=== PATIENT | female | born 1980 | race Caucasian/White ===

== ENCOUNTER 2019-03-16 12:40 | Inpatient (IN) | payer OTHER ==
[~2019-03-16] VITALS: Ht 154.9 cm; Wt 72.1 kg
[2019-03-16] MEDS ORDERED: methylPREDNISolone SOD SUCC 125 MG/2 ML VL ONE (12:50)
[2019-03-16] MEDS ORDERED: IPRATROPIUM BROM 0.5 MG/2.5ML INH SOL ONE (12:52)
[2019-03-16] MEDS ORDERED: ALBUTEROL SULF 2.5 MG/0.5ML(0.5%) NEB SOLN ONE (12:52)
[2019-03-16] MEDS ORDERED: SODIUM CHLORIDE 0.9% 1,000 ML IV ONE (12:53)
[2019-03-16] MEDS ORDERED: IPRATROPIUM BROM 0.5 MG/2.5ML INH SOL NEB ONE (13:00)
[2019-03-16] MEDS ORDERED: methylPREDNISolone SOD SUCC 125 MG/2 ML VL IV ONE (13:00)
[2019-03-16] MEDS ORDERED: ALBUTEROL SULF 2.5 MG/0.5ML(0.5%) NEB SOLN NEB ONE ×3 (13:00→20:45)
[2019-03-16 13:23] LABS: Basophils # (auto) 0.1 uL; Basophils % (auto) 0.6 % (0.0-2.0); Eosinophils # (auto) 1.5 uL; Eosinophils % (auto) 13.9 % (0.0-7.0); Hemoglobin 13.9 g/dL (12.2-16.2); Lymphocytes # (auto) 1.7 uL; Lymphocytes % (auto) 16.4 % (10.0-50.0); Mean Corpuscular Hemoglobin 30.1 pg (28.0-32.0); Mean Corpuscular Hgb Conc. 33.8 g/dL (32.0-36.0); Mean Corpuscular Volume 89.1 fL (80.0-100.0); Monocytes # (auto) 0.7 uL; Monocytes % (auto) 6.4 % (0.0-12.0); Neutrophils # (auto) 6.6 uL; Neutrophils % (auto) 62.7 % (37.0-80.0); Nucleated Red Blood Cells % 0.1 %; Platelet Count (auto) 255 10^3/uL (140-450); Red Cell Distribution Width 13.2 % (11.8-14.3); White Blood Cell 10.5 10^3/uL (4.4-10.8)
[2019-03-16 13:43] LABS: Albumin 3.5 g/dL (3.4-5.0); Anion Gap 10 (5-15); Blood Urea Nitrogen 8 mg/dL (7-18); Calcium 8.7 mg/dL (8.5-10.1); Carbon Dioxide 21 mmol/L (21-32); Chloride 110 mmol/L (98-107); Glucose 100 mg/dL (74-106); Potassium 3.5 mmol/L (3.5-5.1); Sodium 141 mmol/L (136-145)
[2019-03-16 13:50] LABS: Alanine Aminotransferase 20 U/L (13-56); Alkaline Phosphatase 60 U/L (45-117); Aspartate Aminotransferase 12 U/L (15-37); Bilirubin, Total 0.6 mg/dL (0.2-1.0); GFR African American 89 mL/min; GFR Non-African American 74 mL/min; Total Protein 6.9 g/dL (6.4-8.2)
[2019-03-16 14:22] LABS: BUN/Creatinine Ratio 8.8
[2019-03-16] MEDS ORDERED: NITROGLYCERIN 0.4 MG SL TAB SL PRN (17:45)
[2019-03-16] MEDS ORDERED: MORPHINE SULF INJ 2 MG/ML SYRINGE 1ML IV PRN (17:45)
[2019-03-16] MEDS ORDERED: ALUM & MAG HYDROX-SIMETH LIQ(MAALOX) 30 ML PO ONE (18:45)
[2019-03-16] MEDS ORDERED: LORazepam 0.5 MG TAB PO PRN (18:45)
[2019-03-16] MEDS ORDERED: ONDANSETRON HCL 4 MG/2 ML VIAL IV PRN (18:45)
[2019-03-16] MEDS ORDERED: ACETAMINOPHEN 325 MG TAB PO PRN (18:45)
[2019-03-16] MEDS: AZITHROMYCIN 500MG/ 250ML 250 ML IV SCH (19:05)
[2019-03-16] MEDS: ALBUTEROL SULF 2.5 MG/0.5ML(0.5%) NEB SOLN NEB PRN (19:50)
[2019-03-16] MEDS: IPRATROPIUM BROM 0.5 MG/2.5ML INH SOL NEB PRN (19:50)
[2019-03-16 20:35] VITALS: BP 115/70
--- NOTE | 2019-03-16 21:00 | NUR ---
Telemetry admit from ER ANTONY HENDERSON admitted to Telemetry unit after SBAR received. Patient oriented to shahana JIANG RN, unit, room, bed, and unit policies regarding patient care and visiting hours. Patient now on continuous telemetry monitoring, tele box # 28 and telemetry reading on arrival to unit is sinus tachycardia . Patient weighed by bed scale and encouraged to call if they need something. All questions and concerns addressed, patient verbalized understanding.
[2019-03-16] MEDS: MONTELUKAST SODIUM 10 MG TAB PO SCH (21:22)
[2019-03-16] MEDS: methylPREDNISolone SOD SUCC 40 MG/ML VL IV SCH (21:32)
[2019-03-16 22:00] VITALS: BP 110/65
--- NOTE | 2019-03-16 22:01 | NUR ---
Patient c/o numbness and tingling to left lower arm, a litte bit on the right hand and back of left lower leg. Hospitalist paged.
--- NOTE | 2019-03-16 22:05 | NUR ---
B/P 114/71, HR 121, 94% on 02 at 2L.
--- NOTE | 2019-03-16 22:12 | NUR ---
Patient said she gets panic attacks about this time of the day. Takes edible cannabis almost daily to relieve anxiety.
[2019-03-16] MEDS ORDERED: ALBU108A5 IN (22:57)
--- NOTE | 2019-03-16 23:18 | NUR ---
Patient given Ativan .5mg po at 2211 for anxiety. Checked on patient at this time she said it did not help, she is still having the symptoms. Paged Hospitalist.
--- NOTE | 2019-03-16 23:54 | NUR ---
Paged Hospitalist again. Patient said she still has numbness and tingling on left arm. Patient unable to open fingers on left hand.
[2019-03-17] MEDS: ZOLPIDEM TARTRATE 5 MG TAB PO PRN ×2 (00:42→22:08)
[2019-03-17] MEDS: IPRATROPIUM BROM 0.5 MG/2.5ML INH SOL NEB PRN (01:18)
[2019-03-17] MEDS: ALBUTEROL SULF 2.5 MG/0.5ML(0.5%) NEB SOLN NEB PRN (01:18)
--- NOTE | 2019-03-17 03:00 | NUR ---
Hospitalist called back. Patient now calm and sleeping, will continue to monitor.
[2019-03-17 05:00] VITALS: BP 104/62
[2019-03-17] MEDS: ALBUTEROL SULF 2.5 MG/0.5ML(0.5%) NEB SOLN NEB SCH ×5 (05:52→23:24)
[2019-03-17] MEDS: IPRATROPIUM BROM 0.5 MG/2.5ML INH SOL NEB SCH ×5 (05:53→23:24)
[2019-03-17] MEDS: methylPREDNISolone SOD SUCC 40 MG/ML VL IV SCH ×2 (06:10→22:08)
[2019-03-17 06:17] LABS: Basophils # (auto) 0 uL; Basophils % (auto) 0.1 % (0.0-2.0); Eosinophils # (auto) 0 uL; Eosinophils % (auto) 0.1 % (0.0-7.0); Hematocrit 40.4 % (36.0-46.0); Hemoglobin 13.8 g/dL (12.2-16.2); Lymphocytes # (auto) 0.8 uL; Lymphocytes % (auto) 4.3 % (10.0-50.0); Mean Corpuscular Hemoglobin 30.5 pg (28.0-32.0); Mean Corpuscular Volume 89.7 fL (80.0-100.0); Monocytes # (auto) 0.3 uL; Monocytes % (auto) 1.5 % (0.0-12.0); Neutrophils # (auto) 17.5 uL; Platelet Count (auto) 283 10^3/uL (140-450); Red Blood Cells 4.51 10^6/uL (4.0-5.20); Red Cell Distribution Width 13.3 % (11.8-14.3); White Blood Cell 18.6 10^3/uL (4.4-10.8)
[2019-03-17 07:10] LABS: Albumin 3.5 g/dL (3.4-5.0); Calcium 8.8 mg/dL (8.5-10.1); Magnesium 2.1 mg/dL (1.6-2.6); Potassium 4.1 mmol/L (3.5-5.1)
[2019-03-17 07:12] LABS: BUN/Creatinine Ratio 9.7; Bilirubin, Total 0.5 mg/dL (0.2-1.0); Cholesterol 210 mg/dL (< 200); HDL Cholesterol 62 mg/dL (40-59); LDL Cholesterol 153 mg/dL (< 100); Total Protein 7.3 g/dL (6.4-8.2); Triglycerides 43 mg/dL (< 150)
--- NOTE | 2019-03-17 07:55 | NUR ---
Opening Shift Note Assumed care of patient, comfortably sleeping, on 2L NC. No S/S of distress/SOB or pain.Bed at lowest locked position Bed at lowest locked position, bed side rails up x2 and call light within reach. Will continue to monitor for changes Q1hr and PRN.
[2019-03-17 08:00] VITALS: BP 120/71
[2019-03-17 09:00] VITALS: BP 120/71
[2019-03-17] MEDS: DOCUSATE SOD 100 MG CAP PO SCH (09:18)
[2019-03-17] MEDS: AZITHROMYCIN 500MG/ 250ML 250 ML IV SCH (09:18)
[2019-03-17] MEDS: ENOXAPARIN SOD 40 MG/0.4 ML SYRINGE SC SCH (09:19)
--- NOTE | 2019-03-17 12:00 | NUR ---
at bedside. gave patient to shower. Addendum: 03/18/19 at 0849 by Nesha Escobar RN * permission to shower
[2019-03-17] MEDS: SODIUM CHLORIDE 0.9% 1,000 ML IV SCH (12:15)
[2019-03-17 13:00] VITALS: BP 118/61
--- NOTE | 2019-03-17 14:00 | NUR ---
Patient showering, no s/s of distress/sob noted/stated. Will continue to monitor.
[2019-03-17 17:00] VITALS: BP 106/62
--- NOTE | 2019-03-17 19:02 | NUR ---
closing note Patient comfortably resting in bed. No s/s of distress noted/stated. No c/o pain. Bed at lowest locked position, bed side rails up x2 and call light within reach. Will endorse care to NOC RN.
--- NOTE | 2019-03-17 19:30 | NUR ---
Opening Shift Note Assumed care of patient. Patient is awake and alert. No S/S of distress/SOB or pain. Instructed on POC and to call for assist PRN, will continue to monitor for changes. Bed locked in lowest position and bed rails up x2. Call light within reach.
[2019-03-17 21:25] VITALS: BP 120/78
[2019-03-17] MEDS: MONTELUKAST SODIUM 10 MG TAB PO SCH (22:09)
[2019-03-18] MEDS: IPRATROPIUM BROM 0.5 MG/2.5ML INH SOL NEB SCH ×3 (02:32→09:33)
[2019-03-18] MEDS: ALBUTEROL SULF 2.5 MG/0.5ML(0.5%) NEB SOLN NEB SCH ×3 (02:32→09:33)
[2019-03-18] MEDS: SODIUM CHLORIDE 0.9% 1,000 ML IV SCH (04:58)
[2019-03-18 05:08] VITALS: BP 106/70
[2019-03-18 06:13] LABS: Basophils # (auto) 0 uL; Basophils % (auto) 0.2 % (0.0-2.0); Eosinophils # (auto) 0 uL; Hematocrit 39.5 % (36.0-46.0); Hemoglobin 13.5 g/dL (12.2-16.2); Lymphocytes % (auto) 5.3 % (10.0-50.0); Mean Corpuscular Hemoglobin 30.6 pg (28.0-32.0); Mean Corpuscular Hgb Conc. 34.1 g/dL (32.0-36.0); Mean Corpuscular Volume 89.7 fL (80.0-100.0); Monocytes # (auto) 0.4 uL; Monocytes % (auto) 2.1 % (0.0-12.0); Neutrophils # (auto) 16.7 uL; Neutrophils % (auto) 92.4 % (37.0-80.0); Platelet Count (auto) 264 10^3/uL (140-450); Red Blood Cells 4.41 10^6/uL (4.0-5.20); White Blood Cell 18.1 10^3/uL (4.4-10.8)
[2019-03-18 08:00] VITALS: BP 126/72
--- NOTE | 2019-03-18 08:05 | NUR ---
Opening Shift Note Assumed care of patient, comfortably sleeping, on 2L NC. No S/S of distress/SOB or pain.Bed at lowest locked position, bed side rails up x2 and call light within reach. Will continue to monitor for changes Q1hr and P
[2019-03-18 09:00] VITALS: BP 103/60
[2019-03-18] MEDS: AZITHROMYCIN 500MG/ 250ML 250 ML IV SCH (09:05)
[2019-03-18] MEDS: DOCUSATE SOD 100 MG CAP PO SCH (09:05)
[2019-03-18] MEDS: methylPREDNISolone SOD SUCC 40 MG/ML VL IV SCH (09:05)
[2019-03-18] MEDS: ENOXAPARIN SOD 40 MG/0.4 ML SYRINGE SC SCH (09:06)
[2019-03-18] MEDS ORDERED: BUDE0.5S IN (11:49)
[2019-03-18] MEDS ORDERED: ALBUAER3 IN ×2 (11:49)
[2019-03-18] MEDS ORDERED: AZIT500T PO ×2 (11:49)
[2019-03-18 12:39] VITALS: BP 126/72
--- NOTE | 2019-03-18 13:38 | NUR ---
Discharge instructions given as ordered. Encourage to follow up with PMD as instructed. All questions and concerns addressed. Patient verbalized understanding. Medication reconciliation form completed and copy given to patient. IV removed with catheter intact, pressure dressing applied. Telemetry unit returned to ICU. Patient ambulated to vehicle via wheelchair with all personal belongings, accompanied by staff and family member. No distress noted at time of departure.
== END 2019-03-18 13:38 | disposition home or self-care (01) | DRG 133 ==
LOC: ER 12:55 → TELE 12:56 → TELE-CENTR 20:42
PROVIDERS: ADMIT Hospitalist; ATTEND Hospitalist
DX: J96.00 Acute respiratory failure, unspecified whether with hypoxia or hypercapnia (principal); J45.901 Unspecified asthma with (acute) exacerbation; D72.829 Elevated white blood cell count, unspecified; F12.90 Cannabis use, unspecified, uncomplicated; T38.0X5A Adverse effect of glucocorticoids and synthetic analogues, initial encounter; E66.9 Obesity, unspecified; E78.5 Hyperlipidemia, unspecified; Y92.89 Other specified places as the place of occurrence of the external cause; Z68.30 Body mass index [BMI] 30.0-30.9, adult
CPT/HCPCS: 36415; 71045; 80053; 80061; 83036; 83735; 84100; 84484; 85025; 94640; 94644; 96361; 96374; G0378

== ENCOUNTER 2019-03-19 16:54 | Emergency (ER) | payer OTHER ==
[~2019-03-19] VITALS: Ht 154.9 cm; Wt 72.6 kg
[~2019-03-19 16:54] MED LIST: ALBU108A5 IN; ALBUAER3 IN; AZIT500T PO
[2019-03-19 16:58] VITALS: BP 130/92
== END 2019-03-19 21:24 | disposition left against medical advice (07) ==
LOC: ER 16:54
DX: J45.909 Unspecified asthma, uncomplicated (principal); F41.9 Anxiety disorder, unspecified; Z53.21 Procedure and treatment not carried out due to patient leaving prior to being seen by health care provider
CPT/HCPCS: 93005